=== PATIENT | female | born 1960 | race Caucasian/White ===

== ENCOUNTER 2021-09-12 22:54 | Emergency (ER) | payer SELFPAY ==
[~2021-09-12] VITALS: Ht 154.9 cm; Wt 99.8 kg
--- NOTE | 2021-09-12 23:10 | NUR ---
BIB SON FOR C/O RLE SWELLING > 1 WEEK. PT AWAKE AND ALERT X4. CHANGED INTO GOWN AND PLACED ON MONITOR AND V/S STABLE.
--- NOTE | 2021-09-12 23:43 | NUR ---
ULTRASOUND AT BEDSIDE
--- NOTE | 2021-09-13 00:56 | NUR ---
Patient discharged to home in stable condition. Written and verbal after care instructions given. Patient verbalizes understanding of instruction.
[2021-09-13 03:04] VITALS: BP 128/72
== END 2021-09-13 01:00 | disposition home or self-care (01) ==
LOC: ER 22:58
DX: R60.0 Localized edema (principal)
CPT/HCPCS: 93971-TC